=== PATIENT | female | born 1960 | race Caucasian/White ===

== ENCOUNTER 2023-04-12 13:51 | Outpatient (CLI) | payer BC, SELFPAY ==
--- NOTE | ~2023-04-12 | XR_ITS ---
EXAMINATION: XR lg joint inject/asp w image DATE: 04/12/2023 14:41 INDICATION: Localized primary osteoarthritis of the left shoulder. TECHNIQUE: A time-out was performed to verify the patient's name, date of , and procedure to b e performed. The procedure including the risks, benefits, and alternatives was discussed with the pat ient. Risks discussed included bleeding, allergic reaction and infection. The patient understood the risks and agreed to proceed. The skin overlying the rotator cuff interval of the left glenohumeral j oint was prepped and draped in usual sterile fashion. Anesthetic was administered with 1% lidocaine subcutaneously. A 22 G needle was advanced under fluoroscopic guidance into the joint. Injection of 1 mL of Omnipaque 240 confirmed intra-articular position of the needle. Subsequently, injectate con sisting of 5 mm of a 4:1 mixture of 1% lidocaine: 80 mg/mL Depo-Medrol for a total dosage of 80 mg De po-Medrol was instilled. Washout of contrast was seen confirming intra-articular administration. The needle was removed and the entry site was cleaned and dressed. There were no immediate complications . Fluoroscopy exposure time was 0.1 minutes. The total number of images was 2. FINDINGS: Real-time fluoroscopy demonstrates the needle in the left glenohumeral joint. Patient's vikas n prior to procedure:11/29. Patient's pain following the procedure: 09/29. IMPRESSION: 1. Successful left glenohumeral joint injection of local anesthetic and steroid with mild decrease in the patient's presenting pain. Reviewed, dictated and finalized at location A. RVISOR ELECTRIC
== END 2023-04-12 13:52 | disposition home or self-care (01) ==
LOC: ANHIMG 13:57
PROVIDERS: PCP Internal Medicine; Visit Provider Physician Assistant Surgical
DX: M19.012 Primary osteoarthritis, left shoulder (principal)
CPT/HCPCS: 20610; 77002; J1040; Q9966

== ENCOUNTER 2023-07-27 09:06 | Outpatient (CLI) | payer BC, SELFPAY ==
--- NOTE | ~2023-07-27 | XR_ITS ---
EXAMINATION: XR lg joint inject/asp w image DATE: 07/27/2023 10:10 INDICATION: Primary osteoarthritis at the left shoulder with left shoulder pain. TECHNIQUE: A time-out was performed to verify the patient's name, date of , and procedure to b e performed. The procedure including the risks, benefits, and alternatives was discussed with the pat ient. Risks discussed included bleeding and infection. The patient understood the risks and agreed to proceed. The skin overlying the rotator cuff interval of the left glenohumeral joint was prepped an d draped in usual sterile fashion. Anesthetic was administered with 1% lidocaine subcutaneously. A 22 G needle was advanced under fluoroscopic guidance into the joint. Injection of 2 mL of Omnipaque 240 confirmed intra-articular position of the needle. Subsequently, injectate consisting of 5 mm a 4 :1 mixture of 1% lidocaine: 80 mg/mL Depo-Medrol for a total dosage of 80 mg Depo-Medrol was instille d. Washout of contrast was seen confirming intra-articular administration. The needle was removed and the entry site was cleaned and dressed. There were no immediate complications. Fluoroscopy exposure time was 0.1 minutes. The total number of images was 1. Total DAP was 0.4 Gycm^2. FINDINGS: Real-time fluoroscopy demonstrates the needle in the left glenohumeral joint. Patient's vikas n prior to procedure:12/30. Patient's pain following the procedure: 07/02. IMPRESSION: 1. Successful left glenohumeral joint injection of local anesthetic and steroid with decrease in the patient's presenting pain. Reviewed, dictated and finalized at location A. S SERVICE COORDINATOR
== END 2023-07-27 09:07 | disposition home or self-care (01) ==
PROVIDERS: PCP Internal Medicine; Referring Provider Physician Assistant Surgical; Visit Provider Orthopaedic Surgery
DX: M19.019 Primary osteoarthritis, unspecified shoulder (principal)
CPT/HCPCS: 20610; 77002; J1040; Q9966

== ENCOUNTER 2023-11-25 07:54 | Outpatient (CLI) | payer BC, SELFPAY ==
--- NOTE | ~2023-11-25 | XR_ITS ---
EXAMINATION: XR lg joint inject/asp w image DATE: 11/25/2023 08:55 INDICATION: Primary osteoarthritis, left shoulder. TECHNIQUE: A time-out was performed to verify the patient's name, date of , and procedure to b e performed. The procedure including the risks, benefits, and alternatives was discussed with the pat ient. Risks discussed included bleeding and infection. The patient understood the risks and agreed to proceed. The skin overlying the left glenohumeral joint was prepped and draped in usual sterile fas hion. Anesthetic was administered with 1% lidocaine subcutaneously. A 22 G needle was advanced unde r fluoroscopic guidance into the joint. Subsequently, injectate consisting of 4 mL 1% lidocaine and 1 mL 80 mg/mL Depo-Medrol was instilled. The needle was removed and the entry site was cleaned and d ressed. There were no immediate complications. Fluoroscopy exposure time was 0.1 minutes. The total number of images was 1. FINDINGS: Real-time fluoroscopy demonstrates the needle in the left glenohumeral joint. Patient's vikas n prior to procedure:08/30. Patient's pain following the procedure: 07/02. IMPRESSION: 1. Fluoroscopy guided left glenohumeral joint injection of local anesthetic and steroid with decrease in the patient's presenting pain. Reviewed, dictated and finalized at location A.
== END 2023-11-25 07:55 | disposition home or self-care (01) ==
PROVIDERS: PCP Internal Medicine; Visit Provider Physician Assistant Surgical
DX: M19.012 Primary osteoarthritis, left shoulder (principal)
CPT/HCPCS: 20610; 77002; J1010

== ENCOUNTER 2024-03-02 13:50 | Outpatient (CLI) | payer BC, SELFPAY ==
--- NOTE | ~2024-03-02 | XR_ITS ---
EXAMINATION: XR lg joint inject/asp w image DATE: 03/02/2024 14:36 INDICATION: Primary osteoarthritis, left shoulder. TECHNIQUE: A time-out was performed to verify the patient's name, date of , and procedure to b e performed. The procedure including the risks, benefits, and alternatives was discussed with the pat ient. Risks discussed included bleeding and infection. The patient understood the risks and agreed to proceed. The skin overlying the left glenohumeral joint was prepped and draped in usual sterile fas hion. Anesthetic was administered with 1% lidocaine subcutaneously. A 22 G needle was advanced unde r fluoroscopic guidance into the joint. Subsequently, injectate consisting of 4 mL 1% lidocaine and 1 mL 80 mg/mL Depo-Medrol was instilled. The needle was removed and the entry site was cleaned and d ressed. There were no immediate complications. Fluoroscopy exposure time was 0.1 minutes. The total number of images was 1. FINDINGS: Real-time fluoroscopy demonstrates the needle in the left glenohumeral joint. Patient's vikas n prior to procedure:08/30. Patient's pain following the procedure: 07/30. IMPRESSION: 1. Fluoroscopy guided left glenohumeral joint injection of local anesthetic and steroid with decrease in the patient's presenting pain. Reviewed, dictated and finalized at location A.
== END 2024-03-02 13:51 | disposition home or self-care (01) ==
PROVIDERS: PCP Internal Medicine; Visit Provider Orthopaedic Surgery
DX: M19.012 Primary osteoarthritis, left shoulder (principal)
CPT/HCPCS: 20610; 77002; J1010; J2003

== ENCOUNTER 2024-06-05 13:52 | Outpatient (CLI) | payer BC, SELFPAY ==
--- NOTE | ~2024-06-05 | XR_ITS ---
EXAMINATION: XR lg joint inject/asp w image DATE: 06/05/2024 14:46 INDICATION: Primary osteoarthritis, left shoulder. TECHNIQUE: A time-out was performed to verify the patient's name, date of , and procedure to b e performed. The procedure including the risks, benefits, and alternatives was discussed with the pat ient. Risks discussed included bleeding and infection. The patient understood the risks and agreed to proceed. The skin overlying the left glenohumeral joint was prepped and draped in usual sterile fas hion. Anesthetic was administered with 1% lidocaine subcutaneously. A 22 G needle was advanced unde r fluoroscopic guidance into the joint. Subsequently, injectate consisting of 4 mL 1% lidocaine and 1 mL 80 mg/mL Depo-Medrol was instilled. The needle was removed and the entry site was cleaned and d ressed. There were no immediate complications. Fluoroscopy exposure time was 0.0 minutes. The total number of images was 1. FINDINGS: Real-time fluoroscopy demonstrates the needle in the left glenohumeral joint. Patient's vikas n prior to procedure:08/30. Patient's pain following the procedure: 06/01. IMPRESSION: 1. Fluoroscopy guided left glenohumeral joint injection of local anesthetic and steroid with decrease in the patient's presenting pain. Reviewed, dictated and finalized at location A. ATION MANAGER
== END 2024-06-05 13:53 | disposition home or self-care (01) ==
PROVIDERS: PCP Internal Medicine; Visit Provider Physician Assistant Surgical
DX: M19.012 Primary osteoarthritis, left shoulder (principal)
CPT/HCPCS: 20610; 77002; J1010; J2003

== ENCOUNTER 2024-10-01 13:51 | Outpatient (CLI) | payer BC, SELFPAY ==
--- NOTE | ~2024-10-01 | XR_ITS ---
EXAMINATION: XR lg joint inject/asp w image DATE: 10/01/2024 15:01 INDICATION: Primary osteoarthritis of the left shoulder TECHNIQUE: A time-out was performed to verify the patient's name, date of , and procedure to b e performed. The procedure including the risks, benefits, and alternatives was discussed with the pat ient. Risks discussed included bleeding and infection. The patient understood the risks and agreed to proceed. The skin overlying the rotator cuff interval of the left glenohumeral joint was prepped an d draped in usual sterile fashion. Anesthetic was administered with 1% lidocaine subcutaneously. A 22 G needle was advanced under fluoroscopic guidance into the joint. Injection of 1 mL of Omnipaque 240 confirmed intra-articular position of the needle. Subsequently, injectate consisting of 5 mm a 4 :1 mixture of 1% lidocaine: 80 mg/mL Depo-Medrol for a total dosage of 80 mg Depo-Medrol was instille d. Washout of contrast was seen confirming intra-articular administration. The needle was removed and the entry site was cleaned and dressed. There were no immediate complications. Fluoroscopy exposure time was 0.2 minutes. The total number of images was 2. FINDINGS: Real-time fluoroscopy demonstrates the needle in the left glenohumeral joint. Patient's vikas n prior to procedure:3/10. Patient's pain following the procedure: 3/10. IMPRESSION: 1. Successful left glenohumeral joint injection of local anesthetic and steroid with no change in the patient's presenting pain. Reviewed, dictated and finalized at location A.
--- OUTSIDE RECORDS SUMMARY | 2024-10-01 14:01 | XMS_ITS | CONTINUITY OF CARE DOCUMENT ---
Author Name [email or web address] Address Unknown Organization [facility] Address [address] [place] [address] Phone [phone] Care Team Providers Care Pizza Delivery Name Role Phone Savanna Rosales MD Unavailable Aashish Cuellar MD Unavailable Aashish Cuellar MD Unavailable INSURANCE PROVIDERS Payer name Policy type / Coverage type [place] red democrat ID [facility] [id number]
--- OUTSIDE RECORDS SUMMARY | 2024-10-01 14:01 | XMS_ITS | Encounter Summary ---
Author Organization [facility] Address 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
--- OUTSIDE RECORDS SUMMARY | 2024-10-01 14:01 | XMS_ITS | Clinical Summary ---
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 Gender Identity Not on file Sexual Orientation Not on file Plan of Treatment Health Maintenance Due Date Last Done Comments DTAP/TDAP/TD VACCINES (1 - Tdap) 11/02/1978 HPV/Cotest (21-29) 11/02/1980 HPV/Cotest (30-65) 11/02/1989 BREAST CANCER SCREENING 1999 CERVICAL CANCER SCREENING 06/16/2002 PAP SMEAR 06/16/2002 06/16/1999 COLORECTAL SCREENING 11/02/2004 Colorectal Cancer Screening 11/02/2004 FIT-DNA Q 3 years 11/02/2004 FIT/FOBT Q 1 year 11/02/2004 Flex Sig/CT Colonography Q 5 years 11/02/2004 ZOSTER VACCINE (1 of 2) 11/02/2009 INFLUENZA VACCINE (#1) 2023 RSV VACCINE (60+ or ) (1 - 1-dose 75+ series) 11/02/2034
--- OUTSIDE RECORDS SUMMARY | 2024-10-01 14:01 | XMS_ITS | Encounter Summary ---
Author Organization [facility] Address [address] [place] [address] Care Team Providers Care Digging Machine Operator Name Role Phone Unavailable Primary Care Provider Unavailabl e Encounter Details Date Type Department Care Team (Late st Contact Info) Description 07/19/2000 Outpatient Historical [facility] VP GENETIC - Medical [facility] [phone] [facility] [address] [phone] Riccardo Alvarado MD [address] [place] [address] Social History Tobacco Use Types Packs/Day Years Used Date Smoking Tobacco: Never Assessed Comments Unknown Sex and Gender Information Value Date Recorded Sex Assigned at Not on file 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
--- OUTSIDE RECORDS SUMMARY | 2024-10-01 14:01 | XMS_ITS | Encounter Summary ---
Author Organization [facility] Address [address] Attn: [place] [address] Care Team Providers Care Car Rental Agent Name Role Phone Unavailable Primary Care Provider Unavailabl e Encounter Details Date Type Department Care Team (Late st Contact Info) Description 03/09/1995 Outpatient Historical Riccardo Alvarado MD [address] [place] [address] Social History Tobacco Use Types Packs/Day Years Used Date Smoking Tobacco: Never Assessed Comments Unknown Sex and Gender Information Value Date Recorded Sex Assigned at Not on file Legal Sex Female 4:37 AM JOCKEY VALET Gender Identity Not on file Sexual Orientation Not on file documented as of this encounter Plan of Treatment Not on file documented as of this encounter Visit Diagnoses Not on filedocumented in this encounter
--- OUTSIDE RECORDS SUMMARY | 2024-10-01 14:01 | XMS_ITS | Encounter Summary ---
Author Organization Address [address] [place] [address] Care Team Providers Care Executive Team Leader Name Role Phone Unavailable Primary Care Provider Unavailabl e Encounter Details Date Type Department Care Team (Late st Contact Info) Description 06/16/1999 Outpatient Historical [facility] FREELANCE MAKEUP ARTIST - Medical [facility] [phone] 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
--- OUTSIDE RECORDS SUMMARY | 2024-10-01 14:01 | XMS_ITS | Encounter Summary ---
Author Organization [facility] Address [address] Alejandran: [place] [address] Care Team Providers Care Welding Machine Operator Helper Arc Name Role Phone Unavailable Primary Care Provider Unavailabl e Encounter Details Date Type Department Care Team (Late st Contact Info) Description 04/26/1996 Outpatient Historical Conversion, History Riccardo Alvarado MD [address] [place] [address] Social History Tobacco Use Types Packs/Day Years Used Date Smoking Tobacco: Never Assessed Comments Unknown Sex and Gender Information Value Date Recorded Sex Assigned at Not on file Legal Sex Female 4:37 AM INSPECTOR INSULATION Gender Identity Not on file Sexual Orientation Not on file documented as of this encounter Plan of Treatment Not on file documented as of this encounter Visit Diagnoses Not on filedocumented in this encounter
--- OUTSIDE RECORDS SUMMARY | 2024-10-01 14:02 | XMS_ITS | Data Portability ---
Author Organization [facility], Main Office Address [address] [place] [address] Care Team Providers Care Cabin Agent Name Role Phone GABRIEL CUELLAR Primary Care Provider GABRIEL CUELLAR Referring Provider Assessment Encounter Date Assessment Date Assessment LastModified by Organization Details LastModified Time 06/09/2023 06/09/2023 HPI: Patient returns. She is here for cortisone injection right knee. She has advanced medial compartment osteoarthritis. Last shot was 3 months ago. She got about 2 and half months relief. She wished to have another 1 today. She is not a surgical candidate due to her weight. Physical exam: 62-year-old female alert pleasant. She walks with a 4 prong cane. She has a mild effusion in the right knee. Range motion is from 0-120 degrees. She has mild edema in both lower extremities. No redness noted. Moderate tenderness over the medial joint line to palpation. After ChloraPrep was used on the skin 20 mg Kenalog and 3 cc of 0.5% ropivacaine was injected into the right knee. Impression: 62-year-old female has severe medial compartment osteoarthritis right knee. Shots continue to give her good relief. We will see her in 3 months repeat injection. [email or web address] Not available 06/09/2023 15:59:15 Plan of Treatment Reminders Order Date Submit Date Provider Last Modified By Organization Details Last Modified Time Details Appointments Procedure 60 2024 10:00A M Jaziel Leos MD Not available Not available Not available Any 15 2024 01:30P Rey Cuellar MD Not available Not available Not available Lab rf (rheumato id factor), serum 2024 025 [facility] (Lab), [address] [place], [address], 09/27/2024 20:11:46 ESR (erythroc yte sedimenta tion rate), blood 2024 025 [facility] (Lab), [address] [place], [address], 09/27/2024 19:07:57 [place] (antinucl ear antibodie s) screen, serum 2024 025 [email or web address] [facility] (Lab), [address] [place], [address], 09/27/2024 15:16:36 glycohemo globin, total, blood 2024 025 [facility] (Lab), [address] [place], [address], 09/27/2024 19:40:39 CMP, serum or plasma 2024 025 [facility] (Lab), [address] [place], [address], 09/27/2024 20:16:03 microalbu min, urine 2024 025 [facility] (Lab), [address] [place], [address], 09/27/2024 20:11:51 glycohemo globin, total, blood 2024 025 [facility] (Lab), [address] [place], [address], 05/31/2024 20:25:09 BMP, serum or plasma 2024 025 [facility] (Lab), [address] [place], [address], 05/31/2024 19:08:14 glycohemo globin, total, blood 2023 024 [facility] (Lab), [address] [place], [address], 01/24/2024 22:43:10 BMP, serum or plasma 2023 024 [facility] (Lab), [address] [place], [address], 01/24/2024 20:04:02 glycohemo globin, total, blood 2023 024 [facility] (Lab), [address] [place], [address], 09/20/2023 20:39:58 CMP, serum or plasma 2023 024 [facility] (Lab), [address] [place], [address], 09/20/2023 21:34:13 Referral None recorded. Procedures colonosco py screening (PROC) 2024 025 [email or web address] Jaziel Leos MD, [address] [facility], [place], [address], 07/26/2024 10:11:12 injection /aspirati on joint/bur sa (PROC) - in office procedure , administe red by provider 2023 024 [email or web address] In-Office Order, Internal Use Only DO Not Attach Compendium DO Not Attach Compendium, Do Not Delete/merge, [id number] 06/09/2023 15:21:19 Surgeries None recorded. Imaging MAMMO, screening , digital, bilateral - Please call patient to schedule. 2023 024 [email or web address] [facility] ([facility]), [address] [place], [address], 02/23/2024 17:22:47 Medication Orders escitalop cj 20 mg tablet 2024 025 GEOVANNA [id number], [address] , [place], [place], [id number], 09/27/2024 14:57:51 FreeStyle Lite Strips 2023 024 [email or web address] [facility] #[id number], [address], [place], [place], [id number], 09/20/2023 14:36:34 Kenalog 10 mg/mL suspensio n for injection [address] [id number], [address] , [place], [place], [id number], 09/20/2023 14:08:21 ropivacai ne (PF) 5 mg/mL (0.5 %) injection solution [address] [id number], [address] , [place], [place], [id number], 09/20/2023 14:08:17 Patient TargetsNo targets recorded. Patient Instructions Encounter Date Encounter Id Patient Instructions Last Modified By Organization Details Last Modified Time 05/31/2024 [id number] risk assessment* [email or web address] Not availabl e 05/31/2024 17:23:00 INFLUENZA VACCINE Recommended today, but patient declined TD/TDAP PNEUMONIA VACCINE Ordered Recommen ded today, patient declined Patient will get at local pharmacy/health department SHINGLES Ordered Recommen ded today, patient declined Patient will get at local pharmacy/health department MAMMOGRAM: Last Mammogram 2023 DEXA SCAN No screening necessary patient is up to date CERVICAL SCREENING/PELVIC EXAMINATION COLORECTAL SCREENING: Last Colonoscopy _2023 Recommended today, but patient declined Ordered DEPRESSION SCREENING Negative BMI Morbid Obesity NUTRITION Continue healthy eating & exercise PHYSICAL ACTIVITY Need more exercise/physica l activity minimum of 10-20 minutes of activity that causes mild breathlessness/d ay VISION Ordered Recommen ded today ALCOHOL USE No alcohol use TOBACCO USE non smoker LUNG CANCER SCREENING Non Smoker-not indicated SEXUALLY ACTIVE No HEPATITIS C SCREENING Not indicated GLUCOSE SCREENING Ordered LIPID SCREENING Ordered Not needed [email or web address] Not available 05/31/2024 16:09:08 09/27/2024 [id number] INFLUENZA VACCINE Recommended today, but patient declined TD/TDAP PNEUMONIA VACCINE Ordered Recommen ded today, patient declined Patient will get at local pharmacy/health department SHINGLES Ordered Recommen ded today, patient declined Patient will get at local pharmacy/health department MAMMOGRAM: Last Mammogram 2023 DEXA SCAN No screening necessary patient is up to date CERVICAL SCREENING/PELVIC EXAMINATION COLORECTAL SCREENING: Last Colonoscopy _2023 Recommended today, but patient declined Ordered DEPRESSION SCREENING Negative BMI Morbid Obesity NUTRITION Continue healthy eating & exercise PHYSICAL ACTIVITY Need more exercise/physica l activity minimum of 10-20 minutes of activity that causes mild breathlessness/d ay VISION Ordered Recommen ded today ALCOHOL USE No alcohol use TOBACCO USE non smoker LUNG CANCER SCREENING Non Smoker-not indicated SEXUALLY ACTIVE No HEPATITIS C SCREENING Not indicated GLUCOSE SCREENING Ordered LIPID SCREENING Ordered Not needed [email or web address] Not available 09/27/2024 14:32:31 Reason for Referral None Reported. Results Created Date Observation Date Name Description Value Unit Range Abnormal Flag Note LastModifiedBy Organization Detail LastModifiedTime 09/14/19 24 09/14/2023 CBC W/O DIFFE RENTI AL white blood cells 7.2 x10'3 /uL 4.2-10 .8 Not Available [facility] (Lab) [address] [place], [address], 09/14/2023 16:42:12 09/14/19 24 09/14/2023 CBC W/O DIFFE RENTI AL red blood cells 4.45 x10'6 /uL 3.80-5 .20 Not Available [facility] (Lab) [address] [place], [address], 09/14/2023 16:42:12 09/14/19 24 09/14/2023 CBC W/O DIFFE RENTI AL hemoglobin 12.5 g/dL 12.0-1 5.6 Not Available [facility] (Lab) [address] [place], [address], 09/14/2023 16:42:12 09/14/19 24 09/14/2023 CBC W/O DIFFE RENTI AL hematocrit 38.0 % 35.7-4 5.7 Not Available [facility] (Lab) [address] [place], [address], 09/14/2023 16:42:12 09/14/19 24 09/14/2023 CBC W/O DIFFE RENTI AL mean red cell volume 85.4 fL 82.0-9 9.0 Not Available [facility] (Lab) [address] [place], [address], 09/14/2023 16:42:12 09/14/19 24 09/14/2023 CBC W/O DIFFE RENTI AL mean red cell hemoglobin 28.1 pg 27.0-3 3.0 Not Available [facility] (Lab) [address] [place], [address], 09/14/2023 16:42:12 09/14/19 24 09/14/2023 CBC W/O DIFFE RENTI AL mean RBC HGB concentratio n 32.9 g/dL 31.0-3 6.0 Not Available [facility] (Lab) [address] [place], [address], 09/14/2023 16:42:12 09/14/19 24 09/14/2023 CBC W/O DIFFE RENTI AL red cell distribution width 13.2 % 11.8-1 5.5 Not Available [facility] (Lab) [address] [place], [address], 09/14/2023 16:42:12 09/14/19 24 09/14/2023 CBC W/O DIFFE RENTI AL platelets 236 x10'3 /uL 150-40 0 Not Available [facility] (Lab) [address] [place], [address], 09/14/2023 16:42:12 09/14/19 24 09/14/2023 CBC W/O DIFFE RENJAISON AL mean platelet volume 9.9 fL 9.0-12 .4 Not Available [facility] (Lab) [address] [place], [address], 09/14/2023 16:42:12 09/14/19 24 09/14/2023 LIPID PANEL cholesterol 131 mg/dL 140-19 9 low NIH PILAR NSUS RECOM MENDA TION FOR JOSLYN STERO L: ADULT CHILD LOW RISK: <200 <170 BORDE RLINE : <200- 239 ----- HIGH RISK: >240 >200 Not Available [facility] (Lab) [address] [place], [address], 09/14/2023 19:39:46 09/14/19 24 09/14/2023 LIPID PANEL triglyceride s 238 mg/dL 0-150 high NIH PILAR NSUS REPOR T RECOM MENDA TION FOR TRIGL YCERI RUY: ADULT CHILD LOW RISK: <150 ----- BODER LINE: 150-1 99 ----- HIGH RISK: >200 ----- Not Available [facility] (Lab) [address] [place], [address], 09/14/2023 19:39:46 09/14/19 24 09/14/2023 LIPID PANEL HDL cholesterol 49 mg/dL 40- Not Available [facility] (Lab) [address] [place], [address], 09/14/2023 19:39:46 09/14/19 24 09/14/2023 LIPID PANEL LDL cholesterol, calculated 34 mg/dL 0-130 NIH PILAR NSUS REPOR T RECOM MENDA TIONS FOR LDL: ADULT CHILD LOW RISK <130 <110 (OPTI MAL LDL) <100 ----- BORDE RLINE : 130-1 59 ----- HIGH RISK: >160 >130 A TRIGL YCERI DE RESUL T >400 INVAL IDATE S THE CALCU LATIO N FOR LDL FRACT IONAT ION - THE LDL RESUL T WILL NOT BE REPOR CHAPIN. Not Available [facility] (Lab) [address] [place], [address], 09/14/2023 19:39:46 09/14/19 24 09/14/2023 VITAM IN D 25-HY DROXY [id number] 49.5 NG/mL 30-100 Vitam in D Statu s: Defic ient: <20 ng/mL Insuf ficie nt: 20-29 ng/mL Suffi cient : 30-10 0 ng/mL Not Available [facility] (Lab) [address] [place], [address], 09/14/2023 21:33:13 09/20/19 24 09/20/2023 HEMOG LOBIN A1C HA1C 7.8 % 4.0-6. 0 high Diabe reginaldo Scree loya Crite miryam: <5.7% Consi stent with absen ce of diabe reginaldo 5.7-6 .4% Consi stent with incre ased risk for diabe reginaldo (pred iabet es) >OR=6 .5% Consi stent with diabe reginaldo REFER ENCE: Diabe reginaldo Care 2015, 39(Roblero ppl.1 ):s13 -s22 Not Available [facility] (Lab) [address] [place], [address], 09/20/2023 20:39:58 09/20/19 24 09/20/2023 COMPR EHENS GOLDY METAB OLIC PANEL sodium 138 mmol/ L 137-14 5 Not Available [facility] (Lab) [address] [place], [address], 09/20/2023 21:34:13 09/20/19 24 09/20/2023 COMPR EHENS GOLDY METAB OLIC PANEL potassium 4.6 mmol/ L 3.5-5. 1 Not Available [facility] (Lab) [address] [place], [address], 09/20/2023 21:34:13 09/20/19 24 09/20/2023 COMPR EHENS GOLDY METAB OLIC PANEL chloride 102 mmol/ L 98-107 Not Available [facility] (Lab) [address] [place], [address], 09/20/2023 21:34:13 09/20/19 24 09/20/2023 COMPR EHENS GOLDY METAB OLIC PANEL carbon dioxide 26 mmol/ L 22-30 Not Available [facility] (Lab) [address] [place], [address], 09/20/2023 21:34:13 09/20/19 24 09/20/2023 COMPR EHENS GOLDY METAB OLIC PANEL anion gap 14.6 mmol/ L 14-22 Not Available [facility] (Lab) [address] [place], [address], 09/20/2023 21:34:13 09/20/19 24 09/20/2023 COMPR EHENS GOLDY METAB OLIC PANEL glucose 212 mg/dL 70-99 high Not Available [facility] (Lab) [address] [place], [address], 09/20/2023 21:34:13 09/20/19 24 09/20/2023 COMPR EHENS GOLDY METAB OLIC PANEL BUN 25 mg/dL 8-19 high Not Available [facility] (Lab) [address] [place], [address], 09/20/2023 21:34:13 09/20/19 24 09/20/2023 COMPR EHENS GOLDY METAB OLIC PANEL creatinine 1.08 mg/dL 0.66-1 .25 Not Available [facility] (Lab) [address] [place], [address], 09/20/2023 21:34:13 09/20/19 24 09/20/2023 COMPR EHENS GOLDY METAB OLIC PANEL GFR 51 Refer ence Range : [place] ge GFR Healt hy Adult : >60 mL/mi n/1.7 3 m2 Chron ic Kidne y Disea se: 15-60 mL/mi n/1.7 3 m2 Kidne y Failu re: <15/m L/min /1.73 m2 www.n iddk. nih.g ov The MDRD study equat ion has not been valid ated in child letitia <18 years of age; pregn ant women ; the elder ly >85 years of age; or in some racia l or ethni c subgr oups, such as Hispa nics. Outsi de the valid ated lois eters , estim ated GFR is less accur ate, requi ring clini elina judgm ent on a case- by-ca se basis . Clini elina inter preta tion for other races and ages must be made by the clini lenny. The MDRD study equat ion has not been valid ated for the evalu ation of serum creat inine relat ed to nutri brenda l statu s or medic ation usage . For perso ns <18 years of age, a pedia tric GFR calcu lator is avail able on the [facility] websi te: https ://cristina w.gonzalo contreras.o del/pr ofess ional s/kdo qi/gf r_cal culat or Not Available [facility] (Lab) [address] [place], [address], 09/20/2023 21:34:13 09/20/19 24 09/20/2023 COMPR EHENS GOLDY METAB OLIC PANEL alkaline phosphatase 123 U/L 38-126 Not Available [facility] (Lab) [address] [place], [address], 09/20/2023 21:34:13 09/20/19 24 09/20/2023 COMPR EHENS GOLDY METAB OLIC PANEL alanine aminotransfe rase 26 U/L 0-35 Not Available [facility] (Lab) [address] [place], [address], 09/20/2023 21:34:13 09/20/19 24 09/20/2023 COMPR EHENS GOLDY METAB OLIC PANEL aspartate aminotransfe rase 31 U/L 15-37 Not Available [facility] (Lab) [address] [place], [address], 09/20/2023 21:34:13 09/20/19 24 09/20/2023 COMPR EHENS GOLDY METAB OLIC PANEL bilirubin, total 0.50 mg/dL 0.20-1 .30 Not Available [facility] (Lab) [address] [place], [address], 09/20/2023 21:34:13 09/20/19 24 09/20/2023 COMPR EHENS GOLDY METAB OLIC PANEL calcium 10.2 mg/dL 8.4-10 .2 Not Available [facility] (Lab) [address] [place], [address], 09/20/2023 21:34:13 09/20/19 24 09/20/2023 COMPR EHENS GOLDY METAB OLIC PANEL total protein 6.9 g/dL 6.3-8. 2 Not Available [facility] (Lab) [address] [place], [address], 09/20/2023 21:34:13 09/20/19 24 09/20/2023 COMPR EHENS GOLDY METAB OLIC PANEL albumin 4.2 g/dL 3.0-4. 4 Not Available [facility] (Lab) [address] [place], [address], 09/20/2023 21:34:13 09/20/19 24 09/20/2023 COMPR EHENS GOLDY METAB OLIC PANEL globulin 2.7 g/dL 2.6-4. 2 Not Available [facility] (Lab) [address] [place], [address], 09/20/2023 21:34:13 09/20/19 24 09/20/2023 COMPR EHENS GOLDY METAB OLIC PANEL A/G ratio 1.6 ratio 1.0-2. 0 Not Available [facility] (Lab) [address] [place], [address], 09/20/2023 21:34:13 01/24/20 24 01/24/2024 BASIC METAB OLIC PANEL sodium 136 mmol/ L 137-14 5 low Not Available [facility] (Lab) [address] [place], [address], 01/24/2024 20:04:02 01/24/20 24 01/24/2024 BASIC METAB OLIC PANEL potassium 4.5 mmol/ L 3.5-5. 1 Not Available [facility] (Lab) [address] [place], [address], 01/24/2024 20:04:02 01/24/20 24 01/24/2024 BASIC METAB OLIC PANEL chloride 106 mmol/ L 98-107 Not Available [facility] (Lab) [address] [place], [address], 01/24/2024 20:04:02 01/24/20 24 01/24/2024 BASIC METAB OLIC PANEL carbon dioxide 23 mmol/ L 22-30 Not Available [facility] (Lab) [address] [place], [address], 01/24/2024 20:04:02 01/24/20 24 01/24/2024 BASIC METAB OLIC PANEL anion gap 11.5 mmol/ L 14-22 low Not Available [facility] (Lab) [address] [place], [address], 01/24/2024 20:04:02 01/24/20 24 01/24/2024 BASIC METAB OLIC PANEL glucose 164 mg/dL 70-99 high Not Available [facility] (Lab) [address] [place], [address], 01/24/2024 20:04:02 01/24/20 24 01/24/2024 BASIC METAB OLIC PANEL BUN 22 mg/dL 8-19 high Not Available [facility] (Lab) [address] [place], [address], 01/24/2024 20:04:02 01/24/2001/24/2024 BASIC METAB OLIC PANEL creatinine 0.88 mg/dL 0.66-1 .25 Not Available [facility] (Lab) [address] [place], [address], 01/24/2024 20:04:02 01/24/20 24 01/24/2024 BASIC METAB OLIC PANEL GFR >60 Refer ence Range : [place] GFR Healt hy Adult : >60 mL/mi n/1.7 3 m2 Chron ic Kidne y Disea se: 15-60 mL/mi n/1.7 3 m2 Kidne y Failu re: <15/m L/min /1.73 m2 www.n iddk. nih.g ov The MDRD study equat ion has not been valid ated in child letitia <18 years of age; pregn ant women ; the elder ly >85 years of age; or in some racia l or ethni c subgr oups, such as Hisky nics. Outsi de the valid ated lois eters , estim ated GFR is less accur ate, requi ring clini elina judgm ent on a case- by-ca se basis . Clini elina inter preta tion for other races and ages must be made by the clini lenny. The MDRD study equat ion has not been valid ated for the evalu ation of serum creat inine relat ed to nutri brenda l statu s or medic ation usage . For perso ns <18 years of age, a pedia tric GFR calcu lator is avail able on the [facility] websi te: https ://cristina contreras.mohini mathis/pr coryess ional s/kdo qi/gf r_cal culat or Not Available [facility] (Lab) [address] [place], [address], 01/24/2024 20:04:02 01/24/2001/24/2024 BASIC METAB OLIC PANEL calcium 10.1 mg/dL 8.4-10 .2 Not Available [facility] (Lab) [address] [place], [address], 01/24/2024 20:04:02 01/24/20 24 01/24/2024 HEMOG LOBIN A1C HA1C 8.3 % 4.0-6. 0 high Diabe reginaldo Scree olya Crite miryam: <5.7% Consi stent with absen ce of diabe reginaldo 5.7-6 .4% Consi stent with incre ased risk for diabe reginaldo (pred iabet es) >OR=6 .5% Consi stent with diabe reginaldo REFER ENCE: Diabe reginaldo Care 2016, 39(Roblero ppl.1 ):s13 -s22 Not Available [facility] (Lab) [address] [place], [address], 01/24/2024 22:43:10 05/31/19 25 05/31/2024 BASIC METAB OLIC PANEL sodium 137 mmol/ L 137-14 5 Not Available [facility] (Lab) [address] [place], [address], 05/31/2024 19:08:14 05/31/19 25 05/31/2024 BASIC METAB OLIC PANEL potassium 4.4 mmol/ L 3.5-5. 1 Not Available [facility] (Lab) [address] [place], [address], 05/31/2024 19:08:14 05/31/19 25 05/31/2024 BASIC METAB OLIC PANEL chloride 106 mmol/ L 98-107 Not Available [facility] (Lab) [address] [place], [address], 05/31/2024 19:08:14 05/31/19 25 05/31/2024 BASIC METAB OLIC PANEL carbon dioxide 25 mmol/ L 22-30 Not Available [facility] (Lab) [address] [place], [address], 05/31/2024 19:08:14 05/31/19 25 05/31/2024 BASIC METAB OLIC PANEL anion gap 10.4 mmol/ L 14-22 low Not Available [facility] (Lab) [address] [place], [address], 05/31/2024 19:08:14 05/31/19 25 05/31/2024 BASIC METAB OLIC PANEL glucose 138 mg/dL 70-99 high Not Available [facility] (Lab) [address] [place], [address], 05/31/2024 19:08:14 05/31/19 25 05/31/2024 BASIC METAB OLIC PANEL BUN 20 mg/dL 8-19 high Not Available [facility] (Lab) [address] [place], [address], 05/31/2024 19:08:14 05/31/19 25 05/31/2024 BASIC METAB OLIC PANEL creatinine 0.99 mg/dL 0.66-1 .25 Not Available [facility] (Lab) [address] [place], [address], 05/31/2024 19:08:14 05/31/19 25 05/31/2024 BASIC METAB OLIC PANEL GFR 56 Refer ence Range : [place] GFR Healt hy Adult : >60 mL/mi n/1.7 3 m2 Chron ic Kidne y Disea se: 15-60 mL/mi n/1.7 3 m2 Kidne y Failu re: <15/m L/min /1.73 m2 www.n iddk. nih.g ov The MDRD study equat ion has not been valid ated in child letitia <18 years of age; pregn ant women ; the elder ly >85 years of age; or in some racia l or ethni c subgr oups, such as Hisky nics. Outsi de the valid ated lois eters , estim ated GFR is less accur ate, requi ring clini elina judgm ent on a case- by-ca se basis . Clini elina inter preta tion for other races and ages must be made by the clini lenny. The MDRD study equat ion has not been valid ated for the evalu ation of serum creat inine relat ed to nutri brenda l statu s or medic ation usage . For perso ns <18 years of age, a pedia tric GFR calcu lator is avail able on the [facility] websi te: https ://ww w.kid diane.o rg/pr ofess ional s/kdo qi/gf r_cal culat or Not Available [facility] (Lab) [address] [place], [address], 05/31/2024 19:08:14 05/31/1905/31/2024 BASIC METAB OLIC PANEL calcium 9.4 mg/dL 8.4-10 .2 Not Available [facility] (Lab) [address] [place], [address], 05/31/2024 19:08:14 05/31/1905/31/2024 HEMOG LOBIN A1C HA1C 7.5 % 4.0-6. 0 high Diabe reginaldo Scree olya Crite miryam: <5.7% Consi stent with absen ce of diabe reginaldo 5.7-6 .4% Consi stent with incre ased risk for diabe reginaldo (pred iabet es) >OR=6 .5% Consi stent with diabe reginaldo REFER ENCE: Diabe reginaldo Care 2016, 39(Roblero ppl.1 ):s13 -s22 Not Available [facility] (Lab) [address] [place], [address], 05/31/2024 20:25:09 09/28/1909/27/2024 SEDIM ENTAT ION RATE erythrocyte sedimentatio n rate 39 mm/HR 0-20 high Not Available [facility] (Lab) [address] [place], [address], 09/27/2024 19:07:57 09/28/19 25 09/27/2024 HEMOG LOBIN A1C HA1C 8.3 % 4.0-6. 0 high Diabe reginaldo Lyndsaye olya Crite miryam: <5.7% Consi stent with absen ce of diabe reginaldo 5.7-6 .4% Consi stent with incre ased risk for diabe reginaldo (pred iabet es) >OR=6 .5% Consi stent with diabe reginaldo REFER ENCE: Diabe reginaldo Care 2015, 39(Roblero ppl.1 ):s13 -s22 Not Available [facility] (Lab) [address] [place], [address], 09/27/2024 19:40:39 09/28/19 25 09/27/2024 RHEUM ATOID FACTO R rf 9.3 IU/mL 0.0-11 .9 Not Available [facility] (Lab) [address] [place], [address], 09/27/2024 20:11:46 09/28/19 25 09/27/2024 MICRO ALBUM IN RANDO M URINE microalbumin , urine 15.7 mg/L 0.0-16 .6 Not Available [facility] (Lab) [address] [place], [address], 09/27/2024 20:11:51 09/28/19 25 09/27/2024 COMPR EHENS GOLDY METAB OLIC PANEL sodium 141 mmol/ L 137-14 5 Not Available [facility] (Lab) [address] [place], [address], 09/27/2024 20:16:03 09/28/19 25 09/27/2024 COMPR EHENS GOLDY METAB OLIC PANEL potassium 4.8 mmol/ L 3.5-5. 1 Not Available [facility] (Lab) [address] [place], [address], 09/27/2024 20:16:03 09/28/19 25 09/27/2024 COMPR EHENS GOLDY METAB OLIC PANEL chloride 103 mmol/ L 98-107 Not Available [facility] (Lab) [address] [place], [address], 09/27/2024 20:16:03 09/28/19 25 09/27/2024 COMPR EHENS GOLDY METAB OLIC PANEL carbon dioxide 28 mmol/ L 22-30 Not Available [facility] (Lab) [address] [place], [address], 09/27/2024 20:16:03 09/28/19 25 09/27/2024 COMPR EHENS GOLDY METAB OLIC PANEL anion gap 14.8 mmol/ L 14-22 Not Available [facility] (Lab) [address] [place], [address], 09/27/2024 20:16:03 09/28/19 25 09/27/2024 COMPR EHENS GLODY METAB OLIC PANEL glucose 173 mg/dL 70-99 high Not Available [facility] (Lab) [address] [place], [address], 09/27/2024 20:16:03 09/28/19 25 09/27/2024 COMPR EHENS GOLDY METAB OLIC PANEL BUN 26 mg/dL 8-19 high Not Available [facility] (Lab) [address] [place], [address], 09/27/2024 20:16:03 09/28/19 25 09/27/2024 COMPR EHENS GOLDY METAB OLIC PANEL creatinine 0.88 mg/dL 0.66-1 .25 Not Available [facility] (Lab) [address] [place], [address], 09/27/2024 20:16:03 09/28/19 25 09/27/2024 COMPR EHENS GOLDY METAB OLIC PANEL GFR >60 Refer ence Range : [place] GFR Healt hy Adult : >60 mL/mi n/1.7 3 m2 Chron ic Kidne y Disea se: 15-60 mL/mi n/1.7 3 m2 Kidne y Failu re: <15/m L/min /1.73 m2 www.n iddk. nih.g ov The MDRD study equat ion has not been valid ated in child letitia <18 years of age; pregn ant women ; the elder ly >85 years of age; or in some racia l or ethni c subgr oups, such as Hispa nics. Outsi de the valid ated lois eters , estim ated GFR is less accur ate, requi ring clini elina judgm ent on a case- by-ca se basis . Clini elina inter preta tion for other races and ages must be made by the clini lenny. The MDRD study equat ion has not been valid ated for the evalu ation of serum creat inine relat ed to nutri brenda l statu s or medic ation usage . For perso ns <18 years of age, a pedia tric GFR calcu lator is avail able on the [facility] websi te: https ://cristina w.gonzalo eckerty.o rg/pr ofess ional s/kdo qi/gf r_cal culat or Not Available [facility] (Lab) [address] [place], [address], 09/27/2024 20:16:03 09/28/19 25 09/27/2024 COMPR EHENS GOLDY METAB OLIC PANEL alkaline phosphatase 121 U/L 38-126 Not Available [facility] (Lab) [address] [place], [address], 09/27/2024 20:16:03 09/28/19 25 09/27/2024 COMPR EHENS GOLDY METAB OLIC PANEL alanine aminotransfe rase 24 U/L 0-35 Not Available [facility] (Lab) [address] [place], [address], 09/27/2024 20:16:03 09/28/19 25 09/27/2024 COMPR EHENS GOLDY METAB OLIC PANEL aspartate aminotransfe rase 27 U/L 15-37 Not Available [facility] (Lab) [address] [place], [address], 09/27/2024 20:16:03 09/28/19 25 09/27/2024 COMPR EHENS GOLDY METAB OLIC PANEL bilirubin, total 0.60 mg/dL 0.20-1 .30 Not Available [facility] (Lab) [address] [place], [address], 09/27/2024 20:16:03 09/28/19 25 09/27/2024 COMPR EHENS GOLDY METAB OLIC PANEL calcium 9.8 mg/dL 8.4-10 .2 Not Available [facility] (Lab) [address] [place], [address], 09/27/2024 20:16:03 09/28/19 25 09/27/2024 COMPR EHENS GOLDY METAB OLIC PANEL total protein 6.8 g/dL 6.3-8. 2 Not Available [facility] (Lab) [address] [place], [address], 09/27/2024 20:16:03 09/28/19 25 09/27/2024 COMPR EHENS GOLDY METAB OLIC PANEL albumin 4.1 g/dL 3.0-4. 4 Not Available [facility] (Lab) [address] [place], [address], 09/27/2024 20:16:03 09/28/19 25 09/27/2024 COMPR EHENS GOLDY METAB OLIC PANEL globulin 2.7 g/dL 2.6-4. 2 Not Available [facility] (Lab) [address] [place], [address], 09/27/2024 20:16:03 09/28/19 25 09/27/2024 COMPR EHENS GOLDY METAB OLIC PANEL A/G ratio 1.5 ratio 1.0-2. 0 Not Available [facility] (Lab) [address] [place], [address], 09/27/2024 20:16:03 07/27/19 24 07/27/2023 injec tion, shoul soy, fluor o nicholas nce (PROC ) No observ ation record ed. [address] [facility] [address] [facility] [address], [place], [address], 09/20/2023 14:18:24 07/28/19 24 07/28/2023 injec tion, shoul soy, fluor o nicholas nce (PROC ) No observ ation record ed. [address] [facility] [address] [facility] [address], [place], [address], 09/20/2023 14:18:23 02/24/20 24 02/24/2024 scree olya breas t darshana, bilat [facility] [address] [facility] [place] [address] Patien t Name: NICOL GONZALEZ ion #: [id number] Sex: F : 1960 4 Dictat ed By: Rafa pitts Attend ing Physic radha: DEE CUELLAR Orderi Physic radha: DEE CUELLAR Exam Date: 2023 15:04 PM Exam Name: MG SCRN BREAST DARSHANA BILAT Admitt ing Diagno sis(es ): PROCED URE: SCREEN ING MAMMOG CJ WITH TOMOSY NTHESI S REASON FOR EXAM: Screen ing mammog cj. No person al histor y of breast cancer or prior breast interv ention . Family histor y of breast cancer in her mother at age 58. COMPAR JAYLEN: MG SCRN BREAST DARSHANA BILAT on DOS: 12/21/22 , MG DIAG BREAST DARSHANA BILAT 3D on DOS: 1, SCREEN ING BREAST DARSHANA, BILAT 3D on DOS: 12/26/17 TECHNI QUE: Bilate ral CC and MLO views obtain ed. Images were obtain ed using a Digita l [employer] nthesi s Unit. Standa rd 2D and 3D [employer] Science[employer] s images were review ed. FINDIN GS: BREAST COMPOS ITION: B - There are scatte red areas of fibrog landul ar densit y. In the right breast , there is a nodule in the right upper outer breast , which appear s slight ly more irregu lar in contou r compar ed to previo us exams. Recomm end furthe r evalua tion with diagno stic right breast ultras ound. In the left breast , no asymme trical parenc hymal patter n, mackenzie ectura l distor tion, pleomo rphic microc alcifi cation s or masses . IMPRES RBIAN: Incomp lete examin ation. Additi onal imagin g needed . RECOMM ENDATI ON: Recomm end right breast diagno stic ultras ound. Diagno stic mammog cj is not needed , as this nodule has been previo usly seen on ultras ound, but appear s slight ly more irregu lar on today' s mammog cj. Page [address] [facility] [address] [place] [address] Patien t Name: NICOL GONZALEZ Access ion #: [id number] Sex: F : 1960 4 Dictat ed By: Rafa pitts Attend ing Physic radha: BETO HOUSTON Physic radha: DEE CUELLAR Exam Date: 2023 15:04 PM Exam Name: MG SCRN BREAST DARSHANA BILAT Admitt ing Diagno sis(es ): ASSESS MENT: BIRADS : 0 - Incomp lete - Need additi onal imagin g evalua tion Electr onical ly Signed by: Rafa pitts at 2023 14:42: 16 PM Page 2 [email or web address] [facility] (Imaging) [address] [place], [address], 02/29/2024 11:27:40 03/05/20 24 03/02/2024 XR, joint , multi ple, 1 view No observ ation record ed. BARCODE Not Available 2023 17:22:58 04/13/20 24 04/13/2024 US, breas t, limit ed [facility] [address] [facility] [place] [address] Fidelia holly Name: NICOL GONZALEZ ion #: [id number] Sex: F : 1960 5 Dictat ed By: Regina Smith Attend ing Physic radha: DEE CUELLAR ER Orderi ng Physic radha: DEE CUELLAR ER Exam Date: 2023 07:03 AM Exam Name: US BREAST LIMITE D RT Admitt ing Diagno sis(es ): US OF THE RIGHT BREAST INDICA TION: abnorm al mammog cj TECHNI QUE: Target ed right breast ultras ound was perfor med. COMPAR JAYLEN: Prior exam dated: 2023 FINDIN GS: There is a benign intram ammary lymph node in the right breast at 10 o'cloc k which likely correl ates with mammog cj findin g. IMPRES BRIAN: Intram ammary lymph node in the right breast at 10 o'cloc k correl ates with the mammog cj findin g and is benign . Annual screen ing mammog marco recomm ended. ACR Bi Rads Catego ry:Cat egory 2 Electr onical ly Signed by: Regina Smith at 2023 08:42: 38 AM Page 1 [email or web address] [facility] (Imaging) [address] [place], [address], 04/26/2024 09:27:32 Result Notes None recorded. Problems Name Problem SNOMED Code Status Onset Date Resolution Date Notes Provider Name and Address Organization Details Recorded Time Acid reflux 245320420 Active 2022 Bindu Deleon CMA null, [facility] 3 14:27:21 Type 2 diabetes mellitus without complicat ion 626096961 Active 2022 LUCAS Ayon, [facility] 3 17:05:21 Pain of right knee joint 81741528918 4100 Active 2022 Micki Jacobsen RMA null, [facility] 3 14:37:50 Localized , primary osteoarth ritis of the shoulder region 015078347 Active 2022 Anya Jade, PROFESSOR OF FAMILY MEDICINE null, [facility] 3 14:30:24 Generaliz ed anxiety disorder 47068929 Active 2022 Zena Zacarias, PROFESSOR OF FAMILY MEDICINE null, [place] - [facility] 3 15:17:05 Osteoarth ritis of right knee joint 19947226972 9100 Active 2023 Micki Jacobsen RMA null, [facility] 4 15:20:12 Mammograp hy abnormal 549952523 Active 2023 Ayana Sullivan LPN null, [facility] 4 11:28:00 Bilateral plantar fasciitis 85225433251 345102 Active 2018 Not Available [facility] 3 04:53:21 Chronic back pain 129634542 Active 2020 Not Available [facility] 3 04:53:21 Hyperkale felicita 70301050 Active 2021 Not Available [facility] 3 04:53:21 Pain of left shoulder joint 73422835674 489611 Active 2021 Not Available [facility] 3 04:53:21 Blood glucose outside reference range 539993784 Completed Not Available [facility] 3 04:53:21 Panic attack 129686306 Active 2021 Not Available [facility] 3 04:53:21 Menopausa l and postmenop ausal disorders 129523798 Completed 201610/14/2017 Not Available [facility] 3 04:53:21 Edema 205730732 Active 2020 Not Available [facility] 3 04:53:21 Adult health examinati on Active 2020 Not Available [facility] 3 04:53:21 Albuminur ia 201286535 Completed 201610/14/2017 Not Available [facility] 3 04:53:22 Loss of hair 767078842 Active 2021 Not Available [facility] 3 04:53:22 Hypertrig lyceridem ia 204015969 Active 2016 Not Available [facility] 3 04:53:22 Osteoarth ritis of right knee joint 84150729045 9100 Completed 202103/23/2022 Micki Jacobsen, RMTera null, [facility] [employer] 4 15:20:12 Depressiv e disorder 19676705 Active 2020 Not Available [facility] 3 04:53:22 Pain of multiple joints 28963917 Active 2021 Gabriel Cuellar MD [address] [place] [address], [address], [address] , [facility] [employer] [facility] [employer] [facility] 5 14:57:21 Hypertens goldy disorder 53919066 Active Not Available [facility] 3 04:53:22 Osteoarth ritis 368827364 Active Knee Not Available [facility] 3 04:53:22 Obesity 904992034 Active Not Available [facility] 3 04:53:22 Anxiety 68122188 Active 2021 Not Available [facility] 3 04:53:23 Pain of hip region 80757513 Completed Not Available [facility] 3 04:53:23 Hyperlipi demia 58271186 Active Not Available [facility] 3 04:53:23 Essential hypertens ion 98288471 Active Not Available [facility] 3 04:53:23 Diabetes mellitus 99991025 Active Not Available [facility] 3 04:53:23 Overactiv e urinary bladder 228191037 Active 2020 Not Available [facility] 3 04:53:23 Kidney disease 15408802 Active 2020 Not Available [facility] 04:53:23 Problem Notes None recorded. Procedures Surgical History Date Name Laterality Status Provider Name and Address Organization Details Recorded Time [employer]IOR [employer] DIRECTOR Surgery completed Not Available [facility] 07/21/2022 04:43:55 Total hysterectomy completed Not Available [facility] 07/21/2022 04:43:55 Carpal tunnel surgery completed Not Available [facility] 07/21/2022 04:43:55 dilation and curettage completed Not Available [facility] 07/21/2022 04:43:55 Imaging Results Imaging Date Name Status LastModified by Organiz ation Details LastModified Time 07/27/2023 injection, shoulder, fluoro guidance (PROC) completed [address] [facility] [address] [facility] [address], [place], [address], 09/20/2023 14:18:24 07/28/2023 injection, shoulder, fluoro guidance (PROC) completed [address] [facility] [address] [facility] [address], [place], [address], 09/20/2023 14:18:23 02/24/2024 screening breast darshana, bilat completed [email or web address] [facility] (Imaging) [address] [place], [address], 02/29/2024 11:27:40 03/02/2024 XR, joint, multiple, 1 view completed [facility] Information not available 03/05/2024 17:22:58 04/13/2024 US, breast, limited completed [email or web address] [facility] (Imaging) [address] [place], [address], 04/26/2024 09:27:32 Procedure Notes None recorded. Medical Equipment None Reported. Allergies No known drug allergies Medications Name Sig Start Date Stop Date Status Note LastModified by Organization Details LastModified Time amoxicill in 500 mg capsule TAKE 1 CAPSULE BY MOUTH THREE TIMES A DAY UNTIL FINISHED 11/17 completed Not Available Not Available Not Available furosemid e 40 mg tablet TAKE 1 TABLET BY MOUTH EVERY DAY IN THE MORNING 12/13 completed Not Available Not Available Not Available oxybutyni n chloride ER 15 mg tablet,ex tended release 24 hr TAKE 1 TABLET BY MOUTH EVERY DAY 05/31 completed Not Available Not Available Not Available oxybutyni n chloride ER 10 mg tablet,ex tended release 24 hr TAKE 1 TABLET BY MOUTH EVERY DAY 06/09 completed Not Available Not Available Not Available glyburide 5 mg tablet TAKE 1 TABLET BY MOUTH TWICE DAILY active Not Available Not Available No t Available tizanidin e 4 mg tablet 10/14 completed Not Available Not Available Not Available glyburide 2.5 mg tablet TAKE ONE TABLET BY MOUTH TWICE A DAY active Not Available Not Available No t Available hydrocodo ne 5 mg-acetam inophen 325 mg tablet 10/14 completed as needed Not Available Not Available Not Available spironola ctone 100 mg tablet TAKE 1 TABLET EVERY DAY BY ORAL ROUTE IN THE MORNING. 04/01 completed Not Available Not Available Not Available Zithromax Z-Jd 250 mg tablet TAKE 2 TABLETS (500 MG) BY ORAL ROUTE ONCE DAILY FOR 1 DAY THEN 1 TABLET (250 MG) BY ORAL ROUTE ONCE DAILY FOR 4 DAYS 06/07 completed Not Available Not Available Not Available penicilli n V potassium 500 mg tablet 02/11 completed Not Available Not Available Not Available acetamino phen 300 mg-codein e 30 mg tablet TAKE 1 TABLET BY MOUTH EVERY 6 HOURS NEEDED FOR PAIN 11/17 completed Not Available Not Available Not Available tramadol 50 mg tablet Take 1 tablet every 6 hours by oral route. active Not Available Not Available No t Available amoxicill in 500 mg tablet 02/27 completed Not Available Not Available Not Available simvastat in 40 mg tablet TAKE 1 TABLET BY MOUTH DAILY active Not Available Not Available No t Available amoxicill in 875 mg tablet TAKE 1 TABLET BY MOUTH TWICE DAILY UNTIL ALL TAKEN 01/29 completed Not Available Not Available Not Available lorazepam 0.5 mg tablet Take 2 tablets twice a day by oral route as needed. active Not Available Not Available No t Available OneTouch Ultra Test strips TEST BLOOD SUGAR TWICE DAILY active Not Available Not Available No t Available Kenalog 10 mg/mL suspensio n for injection in office 09/19 completed [facility]: [phone] 4-20 Not Available Not Available Not Available pantopraz ole 40 mg tablet,de layed release TAKE 1 TABLET BY MOUTH DAILY active Not Available Not Available No t Available simvastat in 20 mg tablet TAKE 1 TABLET BY MOUTH EVERY DAY active Not Available Not Available No t Available lisinopri l 20 mg-hydroc hlorothia zide 25 mg tablet TAKE 1 TABLET BY MOUTH EVERY DAY 04/01 completed Not Available Not Available Not Available diclofena c sodium 75 mg tablet,de layed release TAKE ONE TABLET BY MOUTH EVERY 12 HOURS WITH FOOD OR MILK NEEDED 08/21 completed Not Available Not Available Not Available hydroxyzi ne HCl 25 mg tablet TAKE 1 TABLET BY MOUTH EVERY DAY AT BEDTIME NEEDED active Not Available Not Available No t Available methylpre dnisolone 4 mg tablets in a dose pack take as directed 06/29 completed Not Available Not Available Not Available Vitamin D2 1,250 mcg (50,000 unit) capsule Take 1 capsule every week by oral route for 90 days. 03/08 completed Not Available Not Available Not Available metformin ER 500 mg tablet,ex tended release 24 hr 2 tablets BID 12/13 completed Not Available Not Available Not Available naproxen 500 mg tablet Take 1 tablet twice a day by oral route. active Not Available Not Available No t Available amoxicill in 875 mg-potass ium clavulana te 125 mg tablet Take 1 tablet twice a day by oral route for 7 days. active Not Available Not Available No t Available escitalop cj 10 mg tablet TAKE 1 TABLET BY MOUTH DAILY active Not Available Not Available No t Available escitalop cj 20 mg tablet Take 1 tablet every day by oral route. 2024 active Not Available Not Available Not Avai lable nitrofura ntoin monohydra te/macroc rystals 100 mg capsule Take 1 capsule twice a day by oral route for 5 days. 03/08 completed Not Available Not Available Not Available duloxetin e 30 mg capsule,d elayed release active Not Available Not Available Not Available lidocaine (PF) 10 mg/mL (1 %) injection solution In office injectio n administ ered by the provider 02/23 completed [facility]: [id number] 11-06 Not Available Not Available Not Available OneTouch UltraMini kit 02/11 completed Not Available Not Available Not Available Easy Touch 31 gauge x 5/16 needle USE DIRECTED TO INJECT INSULIN ONCE DAILY active Not Available Not Available No t Available GaviLyte- G 236 gram-22.7 4 gram-6.74 gram-5.86 gram oral solution MIX AND DRINK DIRECTED 09/27 completed Not Available Not Available Not Available OneTouch Delica Lancets 33 gauge 08/29 completed Not Available Not Available Not Available Suprep Bowel Prep Kit 17.5 gram-3.13 gram-1.6 gram oral solution 02/11 completed Not Available Not Available Not Available ropivacai ne (PF) 5 mg/mL (0.5 %) injection solution in office 09/19 completed Not Available Not Available Not Available Monovisc 88 mg/4 mL intra-art icular syringe Injectio ns given in the office by the doctor 02/23 completed [facility]: [id number] 001 Not Available Not Available Not Available Trulicity 1.5 mg/0.5 mL subcutane ous pen injector INJECT 1.5MG SUBCUTAN EOUSLY ONE TIME PER WEEK 11/17 completed Not Available Not Available Not Available Tresiba FlexTouch U-100 insulin 100 unit/mL (3 mL) subcutane ous pen ADMINIST ER 20 UNITS UNDER THE SKIN EVERY DAY FOR DIABETES MELLITUS active Not Available Not Available No t Available Ozempic 0.25 mg or 0.5 mg (2 mg/1.5 mL) subcutane ous pen injector Inject 0.25 mg every week by subcutan eous route. 12/13 completed Not Available Not Available Not Available OneTouch Ultra2 Meter USE DIRECTED 05/31 completed Not Available Not Available Not Available Ozempic 1 mg/dose (4 mg/3 mL) subcutane ous pen injector INJECT 1 MG UNDER THE SKIN ONE DAY A WEEK 09/20 completed Not Available Not Available Not Available Ozempic 2 mg/dose (8 mg/3 mL) subcutane ous pen injector INJECT 2 MG INTO SKIN ONCE A WEEK 09/27 completed Not Available Not Available Not Available Ozempic 0.25 mg or 0.5 mg (2 mg/3 mL) subcutane ous pen injector INJECT 0.5 MG UNDER THE SKIN EVERY WEEK 03/18 completed Not Available Not Available Not Available Vitals Date Recorded Body height Provider Name an d Address Organization Details Last Updated DateTime 06/09/2023 165.1 cm LUCAS Remy [facility] 06/09/2023 15:19:22 Date Recorded Body height Body mass index (BMI) Body weight Body temperature Heart rate Oxygen saturation Oxygen saturation in Arterial blood by Pulse oximetry Systolic blood pressure Diastolic blood pressure Provider Name and Address Organization Details Last Updated DateTime 4 165.1 cm 49.9 kg/m2 435327. 71 g 97.1 [degF] 107 /min 95 % 95 % 124 mm[Hg] 62 mm[Hg] Julieth Jimenezlaurel nereida [employer] [facility] 4 14:07:43 Date Recorded Body height Body mass index (BMI) Body weight Heart rate Oxygen saturation Oxygen saturation in Arterial blood by Pulse oximetry Body temperature Systolic blood pressure Diastolic blood pressure Provider Name and Address Organization Details Last Updated DateTime 4 165.1 cm 50.6 kg/m2 613708. 08 g 100 /min 96 % 96 % 97.5 [degF] 122 mm[Hg] 70 mm[Hg] Julieth Barbaralaurel nereida [employer] [facility] 4 14:14:03 Date Recorded Body height Body mass index (BMI) Body weight Body temperature Heart rate Oxygen saturation Oxygen saturation in Arterial blood by Pulse oximetry Systolic blood pressure Diastolic blood pressure Provider Name and Address Organization Details Last Updated DateTime 5 165.1 cm 48.9 kg/m2 591837. 16 g 97 [degF] 88 /min 97 % 97 % 122 mm[Hg] 70 mm[Hg] Julieth martinlaurel nereida [employer] [facility] 5 14:46:57 Date Recorded Body height Body mass index (BMI) Body weight Body temperature Heart rate Oxygen saturation Oxygen saturation in Arterial blood by Pulse oximetry Systolic blood pressure Diastolic blood pressure Provider Name and Address Organization Details Last Updated DateTime 5 165.1 cm 52.8 kg/m2 009125. 78 g 97.3 [degF] 100 /min 96 % 96 % 132 mm[Hg] 78 mm[Hg] Nannette doty [place] - [facility] 14:45:56 Social History Question Answer Notes LastModified by Organizat ion Details LastModified Time Tobacco Smoking Status Never Smoker Not Available [facility] 07/21/2022 04:19:57 Do You Have An Advance Directive? No Declines To Do [email or web address] Information not available 05/31/2024 Is Blood Transfusion Acceptable In An Emergency? No [email or web address] Information not available 05/31/2024 What Is Your Level Of Caffeine Consumption? Moderate [id number] Information not available 07/21/2022 How Much Tobacco Do You Chew? None [id number] Information not available 07/21/2022 What Type Of Diet Are You Following? REGULAR [id number] Information not available 07/21/2022 Which Illicit Or Recreational Drugs Have You Used? None [id number] Information not available 07/21/2022 What Is The Highest Grade Or Level Of School You Have Completed Or The Highest Degree You Have Received? [id number] [email or web address] Information not available 05/31/2024 Do You Have A Medical Power Of Clam Grader? No [email or web address] Information not available 05/31/2024 What Was The Date Of Your Most Recent Tobacco Screening? 05/31/2024 [email or web address] Information not available 05/31/2024 How Many Children Do You Have? 0 [email or web address] Information not available 05/31/2024 Do You Use Your Seat Belt Or Car Seat Routinely? Yes [email or web address] Information not available 05/31/2024 Do You Use Sunscreen Routinely? No [id number] Information not available 07/21/2022 Have You Recently Traveled Abroad? No [email or web address] Information not available 05/31/2024 Sex: Female Functional Status Question Answer Note LastModified by Organizat ion Details LastModified Time What is your level of alcohol consumption? None [id number] Information not available 07/21/2022 Are you currently employed? 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 None [email or web address] Information not available 05/31/2024 Mental Status Question Answer Note LastModified by Organization D etails LastModified Time Do you feel stressed (tense, restless, nervous, or anxious, or unable to sleep at night)? [id number] [email or web address] Information not available 05/31/2024 Family History Relationship Description Onset Age of this Age Resolved Age Notes LastModified by Organization Details LastModified Time Father Essential hypertension [id number] Not available 07/21/2022 04:43:58 Father Malignant neoplastic disease Skin [id number] Not available 07/21/2022 04:43:58 Maternal Grandmother Heart disease [id number] Not available 07/21/2022 04:43:58 Mother Malignant neoplastic disease Breast /Colon [id number] [id number] Not available 07/21/2022 04:43:58 Mother Depressive disorder [id number] Not available 07/21/2022 04:43:58 Medical History Condition Response ARTHRITIS Y DIABETES, TYPE Y CANCER: SPECIFY Y Gynecological HistoryNo gynecological history recorded. Obstetrics History GPAL:G 0 P 0 0 0 0 Immunizations Vaccine Type Date Status Note Provider Nam e and Address Organization Details Recorded Time SARS-COV-2 (COVID-19) vaccine, UNSPECIFIED 1 completed Not Available [facility] 07/21/2022 05:03:56 SARS-COV-2 (COVID-19) vaccine, UNSPECIFIED 1 completed Not Available [facility] 07/21/2022 05:03:56 Influenza, split virus, quadrivalent, PF 2 completed Not Available [facility] 07/21/2022 05:03:56 Tdap 2 completed Not Available [facility] 07/21/2022 05:03:56 Past Encounters Encounter ID Performer Location Encounter Start Date Encounter Closed Date Diagnosis/Indication Diagnosis SNOMED-CT Code Diagnosis ICD10 Code Diagnosis Note [id number] Gabriel Cuellar MD [facility] [address] [place] [address] 10/21/2020 00:00:00 10/21/2020 15:11:41 [id number] Kamron Rendon MD [facility] [address] [address] 11/20/2020 00:00:00 12/18/2020 12:34:25 [id number] Kamron Rendon MD [facility] [address] [address] 12/18/2020 00:00:00 12/18/2020 12:38:02 [id number] Kamron Rendon MD [facility] [address] [place] [address] 01/15/2021 00:00:00 01/15/2021 14:40:28 [id number] Kamron Rendon MD [facility] [address] [address] 01/29/2021 00:00:00 01/29/2021 16:07:33 [id number] Gabriel Cuellar MD [facility] Internal [address] [address] 02/23/2021 00:00:00 02/23/2021 15:29:58 [id number] Gabriel Cuellar MD [facility] Internal Med [address] [address] 04/02/2021 00:00:00 04/02/2021 15:19:53 [id number] Gabriel Cuellar MD [facility] Internal [address] [address] 05/04/2021 00:00:00 05/04/2021 15:19:18 [id number] Gabriel Cuellar MD [facility] Internal Med [address] [address] 06/29/2021 00:00:00 06/29/2021 15:09:14 [id number] Gabriel Cuellar MD [facility] Internal Med [address] [address] 11/17/2021 00:00:00 11/17/2021 17:24:00 [id number] Gabriel Cuellar MD [facility] Internal Med [address] [address] 04/01/2022 00:00:00 04/01/2022 16:51:45 [id number] Kamron Rendon MD [facility] Ortho [address] [address] 04/08/2022 00:00:00 04/08/2022 13:36:43 [id number] Gabriel Cuellar MD S[facility] Internal Med [address] [facility] [place] [address] 08/11/2022 14:13:53 08/11/2022 14:53:45 Diabetes mellitus 97823879 E11.9 stop metformin ( high creatinine )start ozempic Edema 954370432 R60.9 no more spironolac tone, restart Furosemide Hyperlipidemia 74742750 E78.5 on meds Essential hypertension 11583976 I10 under control, off meds Depressive disorder 3548 9007 F32.9 under control Chronic back pain 342993 002 G89.29 tylenol prn Kidney disease 91897343 N08 stable Osteoarthritis 556788396 M19.90 otc Overactive urinary bladder 143881262 N32.81 not getting worse Hypertriglyceridemia 302 519158 E78.1 under control Hyperkalemia 88732214 E8 7.5 improved Adult heal th examination 630928586 Z00.00 Colonoscop y- 07/2016 - not in chart- [facility] onMammogra m- 10/10Dexa- 10/10Pneumo vax- NeverFLU- has not got in quit a while- Declined 02/23/21CO VID- 08/05/2020 , 08/31/2020 Acid reflux 343912572 K2 1.9 Screening mammography 24 661984 Z12.31 Postmenopausal state 764 02792 Z78.0 [id number] Gabriel Cuellar MD [facility] Internal Med [address] [facility] [place] [address] 12/13/2022 14:40:54 12/13/2022 15:39:15 Diabetes mellitus 13400421 E11.9 ^ ozempic 0.5 mg for a month then increase it to Edema 849346304 R60.9 on Furosemide Hyperlipidemia 19030446 E78.5 on meds Essential hypertension 72229380 I10 under control Depressive disorder 3548 9007 F32.9 under control Chronic back pain 825675 002 G89.29 tylenol prn Kidney disease 02644825 N08 improved, GFR nl Osteoarthritis 673315065 M19.90 otc Overactive urinary bladder 868433345 N32.81 not getting worse Hypertriglyceridemia 302 786358 E78.1 under control Hyperkalemia 00125099 E8 7.5 improved Adult heal th examination 509052052 Z00.00 Colonoscop y- 07/2016 - not in chart- [facility]he onMammogra m- 10/10Dexa- 10/10Pneumo vax- NeverFLU- has not got in quit a while- Declined 02/23/21CO VID- 08/05/2020 , 08/31/2020 Acid reflux 943231988 K2 1.9 Screening mammography 24 199941 Z12.31 Postmenopausal state 764 14420 Z78.0 [id number] Kamron Rendon MD [facility] [address] 03/03/2023 13:42:31 03/14/2023 11:03:41 Pain of right knee joint 5541412826 43885 M25.994 [id number] Kamron Rendon MD [facility]_[address] [address] 03/24/2023 14:00:11 03/24/2023 14:36:42 Pain of left shoulder joint 0661516184 9192948 M25.715 [id number] Gabriel Cuellar MD [facility] Internal Med [address] [address] 04/20/2023 14:39:15 04/20/2023 15:53:57 Hyperlipidemia 74496614 E78.5 on meds Essential hypertension 51784986 I10 under control, no meds Chronic back pain 240008 002 G89.29 tylenol prn Kidney disease 11996051 N08 improved, GFR nl Osteoarthritis 390987930 M19.90 otc Hyperkalemia 04524795 E8 7.5 improved Adult heal th examination 423726370 Z00.00 Colonoscop y- 07/2016 - not in chart- [facility]he onMammogra m- 01/12Dexa- 01/12Pneumo vax- NeverFLU- has not got in quit a while- Declined 02/23/21CO VID- 08/05/2020 , 08/31/2020 Depressive disorder 3548 9007 F32.9 under control Diabetes mellitus 994260 09 E11.9 labs Overactive urinary bladder 590392907 N32.81 getting worse, ^ the dose Acid reflux 346970554 K2 1.9 Hypertriglyceridemia 302 113296 E78.1 under control Generalize d anxiety disorder 04015806 F41.1 hydroxyzin e prn Long-term drug therapy 090879838 Z79.753 [id number] Kamron Rendon MD [facility] Ortho [address] [address] 06/09/2023 15:15:10 06/09/2023 16:03:21 Osteoarthritis of right knee joint 5189470830 49381 M17.11 [id number] Gabriel Cuellar MD [facility] [address] [place] [address] 09/20/2023 14:01:59 09/20/2023 14:30:21 Essential hypertension 47391822 I10 under control, no meds Hyperlipidemia 21658876 E78.5 under control Chronic back pain 640304 002 G89.29 tylenol prn Kidney disease 60613633 N08 improving Osteoarthritis 295884035 M19.90 otc Hyperkalemia 65860716 E8 7.5 improved Adult heal th examination 626019806 Z00.00 Colonoscop y- 07/2016 - not in chart- [facility]he onMammogra m- 01/12Dexa- 01/12Pneumo vax- NeverFLU- has not got in quit a while- Declined 02/23/21CO VID- 08/05/2020 , 08/31/2020 Depressive disorder 3548 9007 F32.9 under control Diabetes mellitus 061928 09 E11.9 labs Overactive urinary bladder 634946395 N32.81 better Acid reflux 962267460 K2 1.9 better Hypertriglyceridemia 302 037215 E78.1 advise dto watch diet Generalize d anxiety disorder 70439546 F41.1 hydroxyzin e prn [id number] Gabriel Cuellar MD [facility] Internal Med [address] [facility] [place] [address] 01/24/2024 14:03:06 01/24/2024 15:05:28 Essential hypertension 13383686 I10 under control, no meds needed Hyperlipidemia 41041870 E78.5 under control Chronic back pain 281219 002 G89.29 tylenol prn Kidney disease 06261493 N08 improving, need to control DM better to prevent more kidney problem, discussed Osteoarthritis 815997333 M19.90 otc Hyperkalemia 45267270 E8 7.5 improved Depressive disorder 3548 9007 F32.9 under control Diabetes mellitus 573180 09 E11.9 check labs, diet discussed, may need insulin if not better Overactive urinary bladder 752642425 N32.81 better Acid reflux 289881676 K2 1.9 better Hypertriglyceridemia 302 428146 E78.1 advised to watch diet Generalize d anxiety disorder 18404535 F41.1 hydroxyzin e prn Adult heal th examination 954641847 Z00.00 Colonoscop y- 07/2016 - not in chart- Moshe onMammogra m- 01/12- ORDEREDDex a- 01/12Pneumo vax- NeverFLU- has not got in quit a while- Declined 02/23/21CO VID- 08/05/2020 , 08/31/2020 Screening mammography 24 397682 Z12.31 [id number] Gabriel Cuellar MD [facility] Internal Med [address] [facility] [place] [address] 05/31/2024 14:36:33 05/31/2024 16:06:51 Diabetes mellitus 91478593 E11.9 ^ the tresiba to 15 units a day Essential hypertension 24546939 I10 under control, no meds needed Hyperlipidemia 74973391 E78.5 under control Chronic back pain 582412 002 G89.29 tylenol prn Kidney disease 44705623 N08 better Osteoarthritis 187489330 M19.90 otc Hyperkalemia 22795868 E8 7.5 improved Depressive disorder 3548 9007 F32.9 under control Overactive urinary bladder 633862636 N32.81 try gemtesa samples Acid reflux 903557944 K2 1.9 better Hypertriglyceridemia 302 399951 E78.1 advised to watch diet Generalize d anxiety disorder 10757287 F41.1 hydroxyzin e prn Adult heal th examination 215943257 Z00.00 Colonoscop y- 07/2016 - not in chart- [facility] onKymmogra m- 04/13/24De xa- 01/12Pneumo vax- NeverFLU- has not got in quit a while- Declined OVID- 08/05/2020 , 08/31/2020 Screening for malignant neoplasm of colon 529626728 Z12.11 Depression screening 171 340432 Z13.31 Normal bod y mass index 35149453 Z68.42 [id number] Gabriel Cuellar MD S_[facility] Internal Med [address] [place] [address] 09/27/2024 14:28:15 09/27/2024 15:11:39 Diabetes mellitus 67802419 E11.9 WATCH DIET, ^ TRESIBA 25 QD, SEND ACCU CHECKS EVERY 3 WEEKSNOT GETTING EYE EXAM, HAS BEEN DISCUSSED MANY TIMES Essential hypertension 84935052 I10 under control, no meds needed Hyperlipidemia 61109963 E78.5 under control Chronic back pain 028865 002 G89.29 tylenol prn Kidney disease 45266225 N08 better Osteoarthritis 567063121 M19.90 otc Hyperkalemia 52162546 E8 7.5 improved Depressive disorder 3548 9007 F32.9 under control Overactive urinary bladder 316355001 N32.81 can not tolerate meds Acid reflux 120853878 K2 1.9 better Hypertriglyceridemia 302 445494 E78.1 advised to watch diet Generalize d anxiety disorder 39051410 F41.1 hydroxyzin e prn^Escita lopram Adult heal th examination 455878445 Z00.00 Colonoscop y- 07/2016 - not in chart- [facility]he onMammogra m- 04/13/24De xa- 01/12Pneumo vax- NeverFLU- has not got in quit a while- Declined OVID- 08/05/2020 , 08/31/2020 Screening for malignant neoplasm of colon 309637011 Z12.11 scheduled for 10/09/24 Pain of mu ltiple joints 89829160 M25.50 Health Concerns Section Related Observation LastModified by Organization Detai ls LastModified Time None Recorded Concern Status LastModified by Organization Details LastModified Time None Recorded Advance Directives Directive N: declines to do Payers Encounter Date Sequence Insurance Name Policy Number Policy Barker Covered Member ID Barker Member ID Guarantor Name 06/09/2023 1 [place] [id number] Nicol Fabisher [id number] Nicol Fabisher 09/20/2023 1 [place] [id number] Nicol Fabisher [id number] Nicol Fabisher 01/24/2024 1 [place] [id number] Nicol Fabisher [id number] Incol Fabisher 05/31/2024 1 [place] [id number] Nicol Fabisher [id number] Nicol Fabisher 09/27/2024 1 [place] [id number] Nicol Fabisher [id number] Nicol Fabisher Notes Date Note Type Note Provider Name and Address Organization Details Recorded Time 4 text/html Pt is here for 4 month f/u , taking meds daily. DM- Accu checks AVG- 169, A1c 7.5 (11/2022).controlling diet,No hypoglycemiaEye exam- needed, again discussedMeds- OZEMPIC 1 mg weekly, Glyburide 5 mg BID, was on metformin and was stopped due to elevated kidney testsHTN- No longer taking any med- med was discontinued in the hospital due to HyperkalemiaArthritis, mostly hips and knees, diclofenac was helping but stopped due to high creatinine, using cane to walk, does not walk much, NEEDS HANDICAPPED PLACARDAlbuminuria- was taken off lisinopril due to hyperkalemiaDepression/ anxiety- symptoms are under control, sleeps betterMeds- on Escitalopram 10 mg qdObesity- has loss 12lbskidney disease-GFR was 45, has improved to nlGERD- meds helpVit D def- on otcOveractive bladder- symptoms are getting betterMeds- Oxybutynin 15 qdchronic back pain- has seen chiropractorHyperkalemia - was 6.9 03/13, Lisinopril and spironolactone has been stopped and k is better Gabriel Cuellar MD [address], [place], [address], [facility] [employer] 09/20/2023 14:27:00 4 text/html Pt is here for 4 month f/u , taking meds daily. Also C/o left shoulder pain. Has been seeing Michael Zepeda and they stopped given her Tramadol said that it interfered with Escitalopram and the TYLENOL does not hep at all.Pain level 12/30Has been getting shots in the knees DM- Accu checks 130-200, A1c 7.8 (09/20/23).controlling diet,No hypoglycemiaEye exam- needed, again discussedMeds- OZEMPIC 2 mg weekly, Glyburide 5 mg BID, was on metformin and was stopped due to elevated kidney testsHTN- No longer taking any med- med was discontinued in the hospital due to HyperkalemiaArthritis, mostly hips and knees, diclofenac was helping but stopped due to high creatinine, using cane to walk, does not walk much, NEEDS HANDICAPPED PLACARDAlbuminuria- was taken off lisinopril due to hyperkalemiaDepression/ anxiety- symptoms are under control, mood is not depressedMeds- on Escitalopram 10 mg qdObesity- has gained someKidney disease-GFR was 45, has improved to nl 51 (09/20/23)GERD- meds helpVit D def- on otcOveractive bladder- symptoms are getting betterMeds- Oxybutynin 15 qdchronic back pain- has seen chiropractorHyperkalemia - was 6.9 03/13, Lisinopril and spironolactone has been stopped and k is better Gabriel Cuellar MD [address], [place], [address], [facility] [employer] 01/24/2024 14:59:15 5 text/html Pt is here for 4 month f/u , taking meds daily. DM- Accu checks 111- 200, A1c 8.3 (01/24/24).controlling diet for the most partNo hypoglycemiaEye exam- needed, again discussedMeds- OZEMPIC 2 mg weekly, Glyburide 5 mg BID, Tresiba 10u dailymetformin was stopped due to elevated kidney testsHTN- No longer taking any med- med was discontinued in the hospital due to HyperkalemiaArthritis, mostly hips and knees, diclofenac was helping but stopped due to high creatinine, using cane to walk, does not walk much, NEEDS HANDICAPPED PLACARD , using voltarenAlbuminuria- was taken off lisinopril due to hyperkalemiaDepression/ anxiety- symptoms are under control, mood is not depressedMeds- on Escitalopram 10 mg qdObesity- has lost 10lbsKidney disease-GFR was 45, has improved to nl >60 (01/24/24)GERD- meds helpMeds- Pantoprazole 40 qdVit D def- on otcOveractive bladder- She stopped taking the Oxybutynin due to the dry mouth and it affecting her singing, will try gemtesachronic back pain- has seen chiropractorHyperkalemia - was 6.9 03/13, Lisinopril and spironolactone has been stopped and k is better Gabriel Cuellar MD [address] [facility] [facility] [address], [place], [address], [place] [facility] [employer] 05/31/2024 17:23:15 5 text/html Pt is here for 4 month f/u , taking meds daily.*Been having a few more panic attacks last two months, been more fatigued lately. Getting bodyaches, hurting all overPt is fasting* BCBS DM- Accu checks 111- 200 s mainly in morn, A1c 7.5 (05/31/24).controlling diet for the most part,No hypoglycemiaEye exam- needed, again discussed,Meds- STOPPED TAKING OZEMPIC due to GI side effects, does not want to take it, Glyburide 5 mg BID, Tresiba 20u dailymetformin was stopped due to elevated kidney testsHTN- No longer taking any med- med was discontinued in the hospital due to HyperkalemiaArthritis, mostly hips and knees, diclofenac was helping but stopped due to high creatinine, using cane to walk, does not walk much, NEEDS HANDICAPPED PLACARD , using voltarenAlbuminuria- was taken off lisinopril due to hyperkalemiaDepression/ anxiety- symptoms are under control, mood is not depressed, MORE ANXIETYMeds- on Escitalopram 10 mg qdObesity- gained 23Kidney disease-GFR was 45, 60, 56GERD- meds helpMeds- Pantoprazole 40 qdVit D def- on otcOveractive bladder- She stopped taking the Oxybutynin due to the dry mouth, gemtesa- STOPPE DDUE TO CONSTIPATIONchronic back pain- has seen chiropractorHyperkalemia - was 6.9 03/13, Lisinopril and spironolactone has been stopped and k is better Gabriel Cuellar MD [address] [facility] [facility] [address], [place], [address], [place] [facility] 09/27/2024 15:00:58 OBGyn Episode No OBEpisode recorded.
== END 2024-10-01 13:52 | disposition home or self-care (01) ==
PROVIDERS: PCP Internal Medicine; Visit Provider Physician Assistant Surgical
DX: M19.012 Primary osteoarthritis, left shoulder (principal)
CPT/HCPCS: 20610; 77002; Q9966